=== PATIENT | male | born 1955 | race Caucasian/White ===

== ENCOUNTER 2024-09-18 12:15 | Emergency (ER) | payer OTHER, MEDICARE ==
[2024-09-18 13:21] LABS: Absolute Basophils 0.1 K/uL (0-0.5); Absolute Eosinophils 0.2 K/uL (0-0.5); Absolute Lymphocytes (CBC) 2.1 K/uL (0.7-4.9); Absolute Monocytes 0.8 K/uL (0.1-1.3); Absolute Neutrophil 3.1 K/uL (1.8-8.0); Eosinophils % 2.6 % (0-4.4); Hematocrit 46.2 % (39.6-49.0); Hemoglobin 15.8 g/dL (13.6-17.9); Lymphocytes % 33.6 % (15.3-44.8); MCH 29.7 pg (27.0-35.0); MCHC 34.1 g/dL (32.0-36.0); MCV 86.9 fL (80-100); MPV 8.6 fL (7.6-11.3); Monocytes % 12.8 % (3.3-12.3); Nucleated Red Blood Cells % 0.1 % (0-0); Platelets 261 thou/uL (152-406); RBC Red Blood Cell Count 5.31 M/uL (4.33-5.43); Red Cell Distribution Width 14.5 % (12.1-15.2)
[2024-09-18 13:25] LABS: Sqamous Epithelial <5 /HPF (None Seen); Urine Bacteria None Seen /HPF (<20); Urine Bilirubin NEGATIVE (Negative); Urine Blood Negative (Negative); Urine Clarity Clear (Clear); Urine Color Light-Yellow (Yellow); Urine Culture Reflex Order NOT NEEDED; Urine Glucose NEGATIVE (Negative); Urine Ketones NEGATIVE (Negative); Urine Microscopic Reflex YN ORDER UMIC; Urine Nitrite NEGATIVE (Negative); Urine Protein NEGATIVE (Negative); Urine RBC <5 /HPF (None Seen); Urine Urobilinogen Normal (Normal); Urine WBC <5 /HPF (<5)
[2024-09-18 13:36] LABS: Albumin 3.9 g/dL (3.4-5.0); Anion Gap 8.6 mEq/L (5.0-15.0); Bilirubin Total 0.6 mg/dL (0.2-1.0); Globulin 4.1 g/dL (2.3-3.5); Potassium 3.6 mEq/L (3.5-5.1)
--- NOTE | 2024-09-18 15:00 | RAD REPORT ---
EXAMINATION: CT Abdomen Pelvis W Contrast CLINICAL INDICATION: Male, 69 years old. ABD PAIN TECHNIQUE: CT abdomen and pelvis was performed, after the administration of IV contrast, as per [facility] protocol. Axial, sagittal and coronal reconstructions were obtained. One or more of the following dose reduction techniques were used: Automated exposure control, adjustment of the mA and k V according to patient size, and iterative reconstruction. Unless otherwise specified, incidental findings do not require dedicated imaging follow-up. COMPARISON: No prior exam. FINDINGS: LOWER CHEST: The visualized lung bases are clear. LIVER: Normal in size and contour. No focal lesion. BILIARY SYSTEM: No suspicious abnormalities. SPLEEN: Normal size. No focal lesion. PANCREAS: No mass, ductal dilation, or delmy-pancreatic fluid. ADRENALS: Normal; no mass. KIDNEYS: Normal size and contour. No hydronephrosis. URINARY BLADDER: Suboptimally distended limiting evaluation. GASTROINTESTINAL TRACT: No evidence of free air, significant intra-abdominal free fluid, bowel obstru ction or abscess. APPENDIX: Normal appendix. LYMPH NODES: No lymphadenopathy. MUSCULOSKELETAL: No acute or suspicious osseous abnormality. ADDITIONAL FINDINGS: Small right inguinal hernia containing fat. IMPRESSION: No acute or concerning abnormalities seen in the abdomen or pelvis.
--- NOTE | 2024-09-18 15:12 | EDPHYS ---
Physician Documentation [facility] Name: Tavo Riojas Age: 69 yrs Sex: Male : 1955 Arrival Date: 09/18/2024 Time: 12:15 Bed 18 Private MD: ED Physician Solomon Jenkins HPI: 09/18 13:22 This 69 yrs old Male presents to ER via Ambulatory with complaints of Abdominal Pain. ms3 13:22 Tavo Riojas is a 69-year-old male presenting to the emergency department with ms3 abdominal pain that has been ongoing for about a week. The pain is located in the lower abdomen and is described as severe, with a pain intensity of 8 out of 10. The patient reports that hot water alleviates the pain. He does not report having fevers, chills, nausea, vomiting, or diarrhea. His past medical history includes coronary artery disease with three past heart attacks, high blood pressure, and high cholesterol. There is a family history of prostate cancer in his father.. Historical: - PMHx: 12:57 Myocardial infarction; iw - PSHx: 12:57 Coronary artery bypass graft; iw - Immunization history:: Adult Immunizations up to date. - Infectious Disease History:: Denies. - Social history:: Smoking status: Patient denies any tobacco usage or history of. ROS: 13:22 Constitutional: Negative for fever, and chills. Cardiovascular: Negative for chest ms3 pain, and palpitations. Respiratory: Negative for shortness of breath, cough, wheezing, and pleuritic chest pain, 13:22 MS/Extremity: Negative for injury and deformity, Skin: Negative for injury, rash, and discoloration, 13:22 Abdomen/GI: Positive for abdominal pain, Exam: 13:22 Constitutional: This is a well developed, well nourished patient who is awake, alert, ms3 and in no acute distress. Chest/axilla: Normal chest wall appearance and motion. Nontender with no deformity. Cardiovascular: Regular rate and rhythm with a normal S1 and S2. No gallops, murmurs, or rubs. Normal PMI, no JVD. No pulse deficits. Respiratory: Lungs have equal breath sounds bilaterally, clear to auscultation and percussion. No rales, rhonchi or wheezes noted. No increased work of breathing, no retractions or nasal flaring. 13:22 Abdomen/GI: Inspection: abdomen appears normal, Bowel sounds: normal, Palpation: mild abdominal tenderness, in the suprapubic area, Rectal exam: Prostate: tender, rectal tone normal, Stool: brown, hemorrhoid(s), are not appreciated, mass, is not appreciated, swelling, is not appreciated, Vital Signs: 12:57 BP 157 / 94; Pulse 84; Resp 16; Temp 97.9; Pulse Ox 96% on R/A; iw 13:12 BP 133 / 79; Pulse 87; Resp 17; Pulse Ox 99% on R/A; Pain 8/10; ld1 14:15 BP 129 / 74; Pulse 81; Resp 18; Pulse Ox 99% on R/A; ld1 13:12 Pain Scale: Adult ld1 MDM: 12:58 Medical Screening Exam initiated ms3 13:22 Differential diagnosis: non-specific abd pain, Prostatitis, urinary tract infection. ms3 18:02 Data reviewed: vital signs, nurses notes, lab test result(s), radiologic studies, and ms3 as a result, I will discharge patient. I considered the following discharge prescriptions or medication management in the emergency department See prescription. Counseling: I had a detailed discussion with the patient and/or guardian regarding the historical points, exam findings, and any diagnostic results supporting the discharge/admit diagnosis, lab results, radiology results, the need for outpatient follow up, to return to the emergency department if symptoms worsen or persist or if there are any questions or concerns that arise at home. Special discussion: Based on the patient's Hx, exam, and Dx evaluation, there is no indication for emergent surgery or inpatient Tx. It is understood by the patient/guardian that if the Sx's persist or worsen they need to return immediately for re-evaluation. ED course: Discussed labs and CT findings discussed with patient. Patient with prostate tenderness, anal pain, and frequent urination. Findings concerning for prostatitis. Patient given prescription for Levaquin 750 mg. Patient to follow-up with primary care physician in 2 to 3 days for continuation of prescription as patient was provided 2 weeks prescription. All questions were answered. Return precautions discussed include worsening symptoms, or any other concerns. On reevaluation patient is alert and oriented x 4, no apparent distress, nontoxic-appearing, speaking full sentences, ambulatory in the emergency department.. 09/18 12:59 Order name: CBC with Diff; Complete Time: 13:27 ms3 09/18 12:59 Order name: CMP; Complete Time: 13:44 ms3 09/18 12:59 Order name: Lipase; Complete Time: 13:44 ms3 09/18 12:59 Order name: Urinalysis w/ reflexes; Complete Time: 13:27 ms3 09/18 12:59 Order name: CT Abd/Pelvis - IV Contrast Only; Complete Time: 15:03 ms3 09/18 12:59 Order name: IV Saline Lock; Complete Time: 13:12 ms3 09/18 12:59 Order name: Labs collected and sent; Complete Time: 13:12 ms3 Administered Medications: No medications were administered Disposition Summary: 09/18/24 15:11 Discharge Ordered Notes: Location: Home ms3 Condition: Stable ms3 Diagnosis - Acute prostatitis ms3 Followup: ms3 - With: Private Physician - When: 2 - 3 days - Reason: Recheck today's complaints Discharge Instructions: - Discharge Summary Sheet ms3 - Prostatitis ms3 Forms: - Medication Reconciliation Form ms3 - Antibiotic Education ms3 - Prescription Opioid Use ms3 - Patient Portal Instructions ms3 - Leadership Thank You Letter ms3 Prescriptions: - levofloxacin 750 mg Oral tablet - take 1 tablet ORAL route once daily; 14 tablet; Refills: 0, Product Selection ms3 Permitted Signatures: Dispatcher [employer] EDMS Tali Bhat RN RN iw Solomon Jenkins DO DO ms3 Emeli Jenkins RN RN ld1 Corrections: (The following items were deleted from the chart) 12:59 12:59 CBC+H.LAB.BRZ ordered. EDMS EDMS 12:59 12:59 COMPREHENSIVE METABOLIC PANEL+C.LAB.BRZ ordered. EDMS EDMS 12:59 12:59 LIPASE+C.LAB.BRZ ordered. EDMS EDMS 12:59 12:59 Urinalysis+U.LAB.BRZ ordered. EDMS EDMS 12:59 12:59 Abdomen Pelvis W Con+CT.RAD.BRZ ordered. EDMS EDMS
--- NOTE | 2024-09-18 15:12 | ER ---
Nurse's Notes [facility] Name: Tavo Riojas Age: 69 yrs Sex: Male : 1955 Arrival Date: 09/18/2024 Time: 12:15 Bed 18 Private MD: Diagnosis: Acute prostatitis Presentation: 09/18 12:57 Chief complaint: Patient states: lower abd pain X 1 week. Coronavirus screen: At this iw time, the client does not indicate any symptoms associated with coronavirus-19. Ebola Screen: No symptoms or risks identified at this time. Initial Sepsis Screen: Does the patient meet any 2 criteria? No. Patient's initial sepsis screen is negative. Does the patient have a suspected source of infection? No. Patient's initial sepsis screen is negative. Risk Assessment: Do you want to hurt yourself or someone else? Patient reports no desire to harm self or others. Onset of symptoms was September 11, 2024. 12:57 Method Of Arrival: Ambulatory iw 12:57 Acuity: LUZ 3 iw Historical: - PMHx: 12:57 Myocardial infarction; iw - PSHx: 12:57 Coronary artery bypass graft; iw - Immunization history:: Adult Immunizations up to date. - Infectious Disease History:: Denies. - Social history:: Smoking status: Patient denies any tobacco usage or history of. Screenin:12 [facility] ED Fall Risk Assessment (Adult) History of falling in the last 3 months, ld1 including since admission No falls in past 3 months (0 pts) Confusion or Disorientation No (0 pts) Intoxicated or Sedated No (0 pts) Impaired Gait No (0 pts) Mobility Assist Device Used No (0 pt) Altered Elimination No (0 pt) Score/Fall Risk Level 0 - 2 = Low Risk Oriented to surroundings, Maintained a safe environment, Educated pt \T\ family on fall prevention, incl call for assistance when getting out of bed, Assessed \T\ reinforced patient's understanding of fall precautions, Provided non-skid footwear, Hourly rounding (assess needs \T\ fall precautionary measures) done, Used ambulatory aids as needed (educated on \T\ assisted with), Used gait belt as appropriate. Abuse screen: Denies threats or abuse. Denies injuries from another. Nutritional screening: No deficits noted. Tuberculosis screening: No symptoms or risk factors identified. Assessment: 13:12 General: Appears in no apparent distress. comfortable, Behavior is calm, cooperative, ld1 appropriate for age. Pain: Complains of pain in pelvis Pain does not radiate. Pain currently is 8 out of 10 on a pain scale. Quality of pain is described as throbbing, Pain began suddenly. Neuro: Level of Consciousness is awake, alert, obeys commands, Oriented to person, place, time, situation. Cardiovascular: Capillary refill < 3 seconds Patient's skin is warm and dry. Respiratory: Airway is patent Respiratory effort is even, unlabored. GI: Abdomen is round non-distended, Bowel sounds present X 4 quads. Abd is soft and non tender. : No signs and/or symptoms were reported regarding the genitourinary system. EENT: No signs and/or symptoms were reported regarding the EENT system. Derm: No signs and/or symptoms reported regarding the dermatologic system. Musculoskeletal: No signs and/or symptoms reported regarding the musculoskeletal system. Vital Signs: 12:57 BP 157 / 94; Pulse 84; Resp 16; Temp 97.9; Pulse Ox 96% on R/A; iw 13:12 BP 133 / 79; Pulse 87; Resp 17; Pulse Ox 99% on R/A; Pain 8/10; ld1 14:15 BP 129 / 74; Pulse 81; Resp 18; Pulse Ox 99% on R/A; ld1 13:12 Pain Scale: Adult ld1 ED Course: 12:19 Patient arrived in ED. sj2 12:27 Solomon Jenkins DO is Attending Physician. ms3 12:57 Triage completed. iw 12:59 Emeli Jenkins, RN is Primary Nurse. ld1 13:12 Urinalysis w/ reflexes Sent. ld1 13:12 Inserted saline lock: 22 gauge in right antecubital area, using aseptic technique. ld1 Blood collected. Flushed with 10 mL NS. 13:12 No provider procedures requiring assistance completed. ld1 13:12 Patient has correct armband on for positive identification. Placed in gown. Bed in low ld1 position. Call light in reach. Side rails up X2. quality assurance monitor body on. Pulse ox on. NIBP on. Door closed. Noise minimized. Warm blanket given. 13:51 CT Abd/Pelvis - IV Contrast Only In Process Unspecified. EDMS 15:37 IV discontinued, intact, bleeding controlled, No redness/swelling at site. iw 15:37 Arm band placed on right wrist. iw Administered Medications: No medications were administered Medication: 13:12 VIS not applicable for this client. ld1 Outcome: 15:11 Discharge ordered by MD. ms3 15:36 Discharged to home ambulatory, iw 15:36 Condition: stable 15:36 Discharge instructions given to patient, Instructed on discharge instructions, follow up and referral plans. Demonstrated understanding of instructions, follow-up care, medications, Prescriptions given X 1, 15:37 Patient left the ED. iw Signatures: Dispatcher [employer] EDMS Tali Bhat, RN RN iw Solomon Jenkins DO DO ms3 Emeli Jenkins RN RN ld1 Rosalio Meek2
[2024-09-19 16:54] VITALS: BP 129/74; TEMP 97.9; O2SAT 99
== END 2024-09-18 15:37 | disposition home or self-care (01) ==
LOC: ER 12:15
DX: N41.0 Acute prostatitis (principal)
CPT/HCPCS: 85025; 81001; 36415; 83690; 80053; 74177; 99284; Q9967